=== PATIENT | female | born 1960 | race Caucasian/White ===

== ENCOUNTER 2019-07-25 14:54 | Outpatient (CLI) | payer OTHER | END 2019-07-25 14:55 | disposition home or self-care (01) | LOC: CTENTCT 14:54 | PROVIDERS: ATTEND Student in an Organized Health Care Education/Training Program | DX: J32.9 Chronic sinusitis, unspecified (principal) | CPT/HCPCS: 70486 ==

== ENCOUNTER 2019-08-03 06:33 | Outpatient (CLI) | payer OTHER ==
[2019-08-04 13:12] LABS: SARS-CoV-2 MS2 Positive; SARS-CoV-2 N Gene Negative; SARS-CoV-2 S Gene Negative; SARS-CoV-2 orf1ab Negative
== END 2019-08-03 06:34 | disposition home or self-care (01) ==
LOC: LABBT 06:33
PROVIDERS: ATTEND Student in an Organized Health Care Education/Training Program
DX: Z01.818 Encounter for other preprocedural examination (principal); Z01.812 Encounter for preprocedural laboratory examination; J32.9 Chronic sinusitis, unspecified; J01.91 Acute recurrent sinusitis, unspecified; S02.2XXA Fracture of nasal bones, initial encounter for closed fracture; J34.2 Deviated nasal septum; J34.3 Hypertrophy of nasal turbinates; J34.89 Other specified disorders of nose and nasal sinuses; H69.80 Other specified disorders of Eustachian tube, unspecified ear
CPT/HCPCS: 85014; 87635; 93005; 93010; U0003

== ENCOUNTER 2019-08-07 06:39 | Day surgery (SDC) | payer OTHER ==
[2019-08-02 14:07] VITALS: BMI 30.9
[2019-08-07] MEDS ORDERED: EPINEPHrine 1 MG/ML AMP ONE (06:52)
[2019-08-07] MEDS ORDERED: Lidocaine 1% (PF) 30 ML VIAL ONE (06:52)
[2019-08-07] MEDS ORDERED: Bacitracin Zinc Ointment 30 gm TUBE ONE (06:52)
[2019-08-07] MEDS ORDERED: Lidocaine 1% w/Epinephrine 1:100K 20 ML VIAL ONE (06:52)
[2019-08-07] MEDS ORDERED: AFRIN NASAL MIST 15 ML BOT ONE ×2 (06:52→07:19)
[2019-08-07] MEDS ORDERED: Scopolamine 1.5 mg/72 hour Patch ONE (07:20)
[2019-08-07] MEDS ORDERED: Propofol 1,000 MG/100 ML VIAL IV ONE (07:55)
[2019-08-07] MEDS ORDERED: Fentanyl 100 MCG/2 ML VIAL ONE (07:55)
[2019-08-07] MEDS ORDERED: Midazolam HCl 2 mg/2 ml Vial ONE (07:55)
[2019-08-07] MEDS ORDERED: HYDROmorphone 0.5 MG/0.5 ML SYRINGE ONE (07:55)
[2019-08-07] MEDS ORDERED: Propofol 500 MG/50 ML VIAL ONE (10:04)
[2019-08-07] MEDS ORDERED: Glycopyrrolate 0.2 MG/ML 5 ML SYRINGE ONE ×2 (10:28→14:57)
[2019-08-07] MEDS ORDERED: Dexamethasone 20 MG/5 ML VIAL ONE (14:57)
[2019-08-07] MEDS ORDERED: Ondansetron PF 4 MG/2 ML Vial ONE (14:57)
[2019-08-07] MEDS ORDERED: PHENYLEPHRINE-NS 100 MCG/ML 10 ML SYRINGE ONE (14:57)
[2019-08-07] MEDS ORDERED: Rocuronium Bromide 10 MG/ML (10ML VIAL) ONE (14:57)
[2019-08-07] MEDS ORDERED: PROPOFOL 200 MG/20 ML VIAL ONE (14:57)
--- NOTE | 2019-08-07 22:39 | OP ---
DATE OF PROCEDURE: 08/07/2019 PREOPERATIVE DIAGNOSES: 1. Recurrent acute rhinosinusitis. 2. Nasal congestion. 3. Septal deviation. 4. Turbinate hypertrophy. 5. 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 POSTOPERATIVE DIAGNOSES: 1. Recurrent acute rhinosinusitis. 2. Nasal congestion. 3. Septal deviation. 4. Turbinate hypertrophy. 5. 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 PROCEDURES PERFORMED: 1. Bilateral image-guided endoscopic sinus surgery. 2. Bilateral balloon dilation of maxillary sinuses. 3. Bilateral balloon dilation of sphenoid sinuses. 4. Bilateral dilation of frontal sinuses. 5. Septoplasty. 6. Bilateral inferior turbinate submucosal reduction. 7. Bilateral repair of nasal valve collapse. 8. Takedown of right denver bullosa. PERMIT: Benefits and risks including of the bleeding, infection, injury from anesthesia, allergic reaction, cerebrospinal fluid leak, necessitating revision repair, and alternatives were reviewed with the patient and family who expressed understanding of the information. The consent form was signed and witnessed and a paper copy of the consent form is available for review in the chart. INDICATIONS: This is a 58-year-old female patient who presented to clinic with significant nasal congestion, turbinate hypertrophy, septal deviation with complaints of recurrent acute rhinosinusitis, necessitating multiple antibiotics as well as symptoms between episodes suggesting a chronic process as well with facial pain and pressure, also with difficulty breathing. She is brought now to the operating room for operative treatment. ASSISTANTS: None. FINDINGS: Deviated septum, left superior and anterior as well as bilateral septal spurs and posterior deviation, turbinate hypertrophy, nasal valve collapse, right bulbous middle turbinate with a very small air cell in the denver bullosa, obstructing the right ostiomeatal complex, purulent drainage from the right middle meatus and right maxillary sinus, and hypoplastic frontal sinuses, significantly the left more than the right. DESCRIPTION OF OPERATION: The patient was brought to the operating room and laid supine on the operating room table. General endotracheal anesthesia was administered. The septum was infiltrated bilaterally with 1% lidocaine with 1:100,000 epinephrine and 6 Afrin-soaked cottonoids were placed on the either side of the nasal cavity to properly decongest the mucosa and prevent bleeding. The patient was then properly draped in the usual fashion, and image guidance was then calibrated and used throughout the case for localization and confirmation. The nose was then evaluated endoscopically and the nasal cavity was examined and the ostiomeatal complex was narrowed bilaterally by the septum as well as the bulbous middle turbinates on the right side with some purulence in the middle meatus and coming from the maxillary antrum. At this point, attention was turned to the balloon dilation of the frontal sinuses. The first was hypoplastic frontal sinuses; however, there was significant narrowing seen on the exam, and per the patient, she has had clinical symptoms here. The frontal sinus seeker was used to locate the largest opening and then it was found to be very narrow and very difficult even to fit the frontal sinus seeker, and once the location was identified, the balloon was then inserted in the frontal sinus configuration into the left hypoplastic frontal sinus and then the balloon was then dilated and then confirmed that it was open with a frontal sinus seeker. Attention was turned to the right side and the frontal sinus seeker was used to explore the frontal sinus and locate it, and then afterwards, the balloon was then passed through the same frontal sinus outflow tract as found with a frontal sinus seeker and then dilated and then the frontal sinus seeker was used to show the area was properly dilated and then it was accessed to the frontal sinus. Attention was then turned to the left sphenoid sinus. The middle turbinate was then lateralized and the superior turbinate was identified and lateralized and the sphenoid ostia was identified and then the straight image-guided suction was used to confirm the sphenoid ostia and the balloon was then placed through the sphenoid ostium and guided that the sphenoid sinus was dilated and confirmed a good opening on sphenoid sinus. Attention was turned to the right side. Again, the middle turbinate was lateralized and superior turbinate was identified and lateralized using the posterior choana and the septum with the guide to find the ostia of the sphenoid sinus, which the balloon was inserted and then confirmed with image guidance. The sphenoid os was confirmed with image guidance and then balloon was inserted and then the sphenoid sinus was dilated. The balloon was then placed in good position of the maxillary sinus and then attention was turned to the left maxillary sinus. The uncinate process was palpated and the maxillary antrum identified and the balloon was advanced and light cord was advanced to transilluminate the sinus and the balloon was dilated. The frontal sinus seeker was again used to confirm adequate dilation and location of the maxillary antrum and the same procedure was performed on the right side. The frontal sinus seeker was used to locate the maxillary antrum and then the balloon dilation of the antrum was performed in a similar fashion. After the balloon dilation was completed, attention was turned to the septoplasty. A speculum and a 15 blade were used to make a Sj incision on the left side followed by elevation of the mucoperichondrial flap down to the floor of the nasal cavity over the left septal spur, taking care to avoid any perforations of the mucoperichondrial flap. The bony cartilaginous junction was then disarticulated and the opposite side was elevated as well. The bony spur along the floor was taken down and the deviated portions of the septum was removed using a swivel knife, a Tamera, as well as Sj forceps. After this was performed, there was a bony deviation posteriorly and the double-action scissors were used to make a cut superiorly and inferiorly and then a [place] forceps was used to remove the deviation. After the deviation was removed, the mucoperichondrial flaps were then reapproximated with 4-0 chromic suture with a Jarek needle and then the anterior Sj incision was closed with 5-0 chromic suture in an interrupted fashion. Next, attention was turned to the bilateral inferior turbinate reductions, which were performed next, 1% lidocaine with 1:100,000 epinephrine was injected roughly 1.5 mL on either side and then a small stab incision was made along the anterior head of each inferior turbinates and then a pocket was then formed and elevated with the oscillating microdebrider, placed into the pocket with removal of the erectile tissue 1st on the left side and then on the right side. After this was performed, both inferior turbinates were then lateralized using a Mclain elevator. Next, the nasal cavity was examined on either side with the endoscope and any small amount of bleeding was then suctioned. There was significant room on either side; however, the right middle turbinate was bulbous in its nature and was narrowing the ostiomeatal complex, so a sickle knife was used to make a vertical incision from superior to inferior and then elevated the lateral aspect of the middle turbinates and small air cell of the denver bullosa was identified and then the oscillating microdebrider was then used to remove the tissue on the lateral side, effectively opening and increasing the size of the ostiomeatal complex on the right side. After this was performed, attention was then turned to the nasal valve repair. The nasal valve was seen to be collapsing bilaterally and the collapse was marked with a marking pen and then the implant was then inserted, starting on the left side, locating the cartilaginous portion of the nasal sidewall and going deep and medial to the cartilaginous structures and then locating the nasal bone and then inserting the implant to be anchored on top of the left nasal bone and effectively lateralizing the cartilage of the left nasal sidewall. The instruments were then removed and the implant was then seen to be in place with no bleeding. Again, the attention was turned to the right side, and at the level of the nasal vibrissae, an implant was then again inserted on the right side beneath the area of nasal valve collapse and then medial and deep to the lateral nasal wall cartilage and then over and superficial to the nasal bone, taking care to place the implant directly under the area of collapse effectively lateralizing the cartilaginous portion of the nasal wall. Instruments were then removed and implant was seen to be in place bilaterally with no bleeding. At this point, the nasal cavity was again suctioned and evaluated and then a small amount of NasoPore packing was placed in the middle meatus on the right side to prevent any scarring from the takedown of the denver bullosa and then Dale splints were then placed and then sutured anteriorly with 2-0 silk suture with a tie on the left side. At this point, all the instruments and endoscopes were removed and withdrawn and the patient tolerated the procedure well without complications and turned back to Anesthesia for emergence. Job ID: [id number]
== END 2019-08-07 12:30 | disposition home or self-care (01) ==
LOC: SDC 06:39
PROVIDERS: ATTEND Student in an Organized Health Care Education/Training Program
PROC: 099X8ZZ Drainage of Left Sphenoid Sinus, Via Natural or Artificial Opening Endoscopic (ICD-10-PCS; principal; 2019-08-07)
PROC: 099W8ZZ Drainage of Right Sphenoid Sinus, Via Natural or Artificial Opening Endoscopic (ICD-10-PCS; principal; 2019-08-07)
PROC: 09BS8ZZ Excision of Right Frontal Sinus, Via Natural or Artificial Opening Endoscopic (ICD-10-PCS; principal; 2019-08-07)
PROC: 099R8ZZ Drainage of Left Maxillary Sinus, Via Natural or Artificial Opening Endoscopic (ICD-10-PCS; principal; 2019-08-07)
PROC: 09BT8ZZ Excision of Left Frontal Sinus, Via Natural or Artificial Opening Endoscopic (ICD-10-PCS; principal; 2019-08-07)
PROC: 09BL8ZZ Excision of Nasal Turbinate, Via Natural or Artificial Opening Endoscopic (ICD-10-PCS; principal; 2019-08-07)
PROC: 09BU8ZZ Excision of Right Ethmoid Sinus, Via Natural or Artificial Opening Endoscopic (ICD-10-PCS; principal; 2019-08-07)
PROC: 09BV8ZZ Excision of Left Ethmoid Sinus, Via Natural or Artificial Opening Endoscopic (ICD-10-PCS; principal; 2019-08-07)
PROC: 099Q8ZZ Drainage of Right Maxillary Sinus, Via Natural or Artificial Opening Endoscopic (ICD-10-PCS; principal; 2019-08-07)
PROC: 09UM87Z Supplement Nasal Septum with Autologous Tissue Substitute, Via Natural or Artificial Opening Endoscopic (ICD-10-PCS; principal; 2019-08-07)
DX: J01.91 Acute recurrent sinusitis, unspecified (principal); J34.2 Deviated nasal septum; J34.3 Hypertrophy of nasal turbinates; J34.89 Other specified disorders of nose and nasal sinuses; Z79.899 Other long term (current) drug therapy; Z88.5 Allergy status to narcotic agent; Z88.8 Allergy status to other drugs, medicaments and biological substances; Z91.011 Allergy to milk products; Z91.012 Allergy to eggs; Z91.018 Allergy to other foods
CPT/HCPCS: J0171; J1100; J1170; J2001; J2250; J2405; J2704; J3010

== ENCOUNTER 2021-04-02 13:58 | Outpatient (CLI) | payer OTHER ==
[2021-04-02 17:33] LABS: #Basophils 0.1 10x3/uL (0.0-0.2); #Eosinphils 0.2 10x3/uL (0.0-0.5); #Monocytes 0.6 10x3/uL (0.0-1.1); #Neutrophils 4.2 10x3/uL (1.5-8.4); %Basophils 0.9 % (0.0-2.0); %Eosinophils 3.5 % (0.0-6.0); %Lymphocytes 23.8 % (18.0-47.0); %Monocytes 8.7 % (0.0-10.0); %Neutrophils 62.8 % (40.0-75.0); Hemoglobin 13.5 g/dL (12.0-15.5); Mean Corpuscular HGB CONC 33.1 g/dL (32.0-36.0); Mean Corpuscular Hemoglobin 29.5 pg (27.0-33.0); Mean Corpuscular Volume 89.3 fl (81.6-98.3); Mean Platelet Volume 10.5 fl (7.4-10.4); Platelet Count 287 10x3/uL (150-450); RBC Distribution Width 13.2 % (11.5-14.5); Red Blood Cell (RBC) Count 4.57 10x6/uL (3.90-5.03); White Blood Cell (WBC) Count 6.6 10x3/uL (3.5-10.5)
[2021-04-02 17:54] LABS: Anion Gap 14 mmol/L (10-20); BUN (Urea Nitrogen) 21 mg/dL (9.8-20.1); Calc. Creatinine Clearance 0 mL/min (70-130); Calcium 9.3 mg/dL (7.8-10.44); Carbon Dioxide 27 mmol/L (22-29); Chloride 105 mmol/L (98-107); Glucose 89 mg/dL (70-105); Sodium 141 mmol/L (136-145)
[2021-04-03 08:33] LABS: SARS-CoV-2 PCR by NAA Not Detected (NotDetected)
== END 2021-04-02 13:59 | disposition home or self-care (01) ==
LOC: LABBT 13:58
PROVIDERS: ATTEND Orthopaedic Surgery Hand Surgery
DX: Z01.818 Encounter for other preprocedural examination (principal); M65.311 Trigger thumb, right thumb; Z20.822 Contact with and (suspected) exposure to COVID-19
CPT/HCPCS: 80048; 85025; 93005; 93010; U0003; U0005

== ENCOUNTER 2021-04-07 06:46 | Day surgery (SDC) | payer OTHER ==
[2021-04-01 14:30] VITALS: BMI 31.7
[2021-04-07] MEDS ORDERED: Betamet Acet/Betamet Na Ph 30 MG/5 ML VIAL ONE (11:41)
[2021-04-07] MEDS ORDERED: Bupivacaine PF 0.5% 30 ML VIAL ONE (11:41)
[2021-04-07] MEDS ORDERED: Bacitracin Zinc Ointment 30 gm TUBE ONE (11:41)
[2021-04-07] MEDS ORDERED: ceFAZolin Sodium (SDC) 2 GM/100 ML BAG ONE (12:10)
[2021-04-07] MEDS ORDERED: Fentanyl 250 MCG/5 ML VIAL ONE (12:15)
[2021-04-07] MEDS ORDERED: Midazolam HCl 2 mg/2 ml Vial ONE (12:15)
[2021-04-07] MEDS ORDERED: Dexmedetomidine 200 MCG/2 ML VIAL ONE (12:15)
[2021-04-07] MEDS ORDERED: Ketamine 50 MG/ML (10ML VIAL) ONE (12:15)
[2021-04-07] MEDS ORDERED: Propofol 1,000 MG/100 ML VIAL IV ONE (12:16)
[2021-04-07] MEDS ORDERED: Ondansetron PF 4 MG/2 ML Vial ONE (12:22)
[2021-04-07] MEDS ORDERED: Glycopyrrolate 0.2 MG/ML 5 ML SYRINGE ONE (12:22)
[2021-04-07] MEDS ORDERED: Dexamethasone 20 MG/5 ML VIAL ONE (12:22)
[2021-04-07] MEDS ORDERED: Ketorolac Tromethamine 30 MG/ML VIAL ONE (12:22)
[2021-04-07] MEDS ORDERED: Metoclopramide HCl 10 MG/2 ML VIAL ONE (12:22)
== END 2021-04-07 15:00 | disposition home or self-care (01) ==
LOC: SDC 06:46
PROVIDERS: ATTEND Orthopaedic Surgery Hand Surgery
PROC: 0LN70ZZ Release Right Hand Tendon, Open Approach (ICD-10-PCS; principal; 2021-04-07)
DX: M65.311 Trigger thumb, right thumb (principal); M65.312 Trigger thumb, left thumb; M54.12 Radiculopathy, cervical region; M35.1 Other overlap syndromes; I10 Essential (primary) hypertension; Z87.891 Personal history of nicotine dependence; Z79.899 Other long term (current) drug therapy; Z88.5 Allergy status to narcotic agent; Z91.012 Allergy to eggs; Z91.014 Allergy to mammalian meats; Z91.018 Allergy to other foods; Z91.041 Radiographic dye allergy status
CPT/HCPCS: J0690; J0702; J1100; J1885; J2250; J2405; J2704; J2765; J3010; S0020

== ENCOUNTER 2022-10-18 17:30 | Outpatient (CLI) | payer OTHER | END 2022-10-18 17:31 | disposition home or self-care (01) | LOC: SLEEPLAB 17:30 | PROVIDERS: ATTEND Family Medicine | DX: G47.33 Obstructive sleep apnea (adult) (pediatric) (principal); I10 Essential (primary) hypertension; R06.83 Snoring; R53.83 Other fatigue | CPT/HCPCS: 95800 ==

== ENCOUNTER 2022-11-19 17:00 | Outpatient (CLI) | payer OTHER | END 2022-11-19 17:01 | disposition home or self-care (01) | LOC: SLEEPLAB 17:00 | PROVIDERS: ATTEND Family Medicine | DX: G47.33 Obstructive sleep apnea (adult) (pediatric) (principal); R53.83 Other fatigue; R06.83 Snoring; I10 Essential (primary) hypertension | CPT/HCPCS: 95811 ==